=== PATIENT | female | born 1990 | race Caucasian/White ===

== ENCOUNTER 2017-01-07 14:50 | Inpatient (IN) | payer MEDICAID ==
[2017-01-07] VITALS (25 sets, daily range): BP systolic 114–141; BP diastolic 60–83; PULSE 73–102; TEMP 98.2–98.9
[~2017-01-07] VITALS: Ht 162.6 cm; Wt 104.5 kg
[~2017-01-07 14:50] MED LIST: DULCOLAX TAB5 MG PO; MOTRIN 800800 MG/TAB PO; PERCOCET 325 MG1 TA2 PO; PRENATAL VITAMI1 T12 PO; TYLENOL 325MG325 MG PO
[2017-01-07] MEDS ORDERED: NATURAL IRON65 MG PO (15:17)
[2017-01-07] MEDS ORDERED: TYLENOL 325MG325 MG PO (15:17)
[2017-01-07 15:41] LABS: BASO % 0.2 % (0.0-2.0); EOS % 0.1 % (0-4.0); GRAN # 10.6 (1.4-6.5); GRAN % 79.3 % (42.2-75.2); HEMATOCRIT 37.5 % (37.0-47.0); LYMPH # 1.9 (1.2-3.4); LYMPH % 14.4 % (20.0-51.0); MEAN CELL VOLUME 77 fl (80.0-100.0); MEAN CORPUSCULAR HEMOGLOBIN 25 pg (27.0-31.0); MEAN CORPUSCULAR HGB CONC 32 g/dl (33.0-37.0); MONO # 0.7 (0.1-0.6); MONO % 5.3 % (1.7-9.3); PLATELET COUNT 166 K/mm3 (130-400); RED BLOOD COUNT 4.89 M/mm3 (4.10-5.30); REDCELL DISTRIBUTION WIDTH-CV 19.4 % (11.5-14.5); WHITE BLOOD COUNT 13.3 K/mm3 (4.8-10.8)
[2017-01-08 03:20] VITALS: BP 120/65; PULSE 87; TEMP 97.8
[2017-01-08 07:00] VITALS: BP 120/94; PULSE 85; TEMP 98.2
[2017-01-08 08:21] LABS: BASO % 0.2 % (0.0-2.0); EOS % 0.3 % (0-4.0); GRAN # 8.1 (1.4-6.5); GRAN % 75.3 % (42.2-75.2); LYMPH % 18.2 % (20.0-51.0); MEAN CELL VOLUME 81 fl (80.0-100.0); MEAN CORPUSCULAR HGB CONC 30 g/dl (33.0-37.0); MEAN PLATELET VOLUME 11.4 fl (7.4-10.4); MONO # 0.6 (0.1-0.6); MONO % 5.4 % (1.7-9.3); PLATELET COUNT 110 K/mm3 (130-400); RED BLOOD COUNT 3.27 M/mm3 (4.10-5.30); REDCELL DISTRIBUTION WIDTH-CV 19.6 % (11.5-14.5); WHITE BLOOD COUNT 10.7 K/mm3 (4.8-10.8)
[2017-01-08 08:24] LABS: HEMATOCRIT 26.4 % (37.0-47.0); MEAN CORPUSCULAR HEMOGLOBIN 24 pg (27.0-31.0)
[2017-01-08 16:30] VITALS: BP 124/70; PULSE 93; TEMP 98
[2017-01-08 22:30] VITALS: BP 110/63; PULSE 75; TEMP 97.8
[2017-01-09] VITALS (12 sets, daily range): BP systolic 97–134; BP diastolic 59–71; PULSE 82–101; TEMP 97.5–98.6
[2017-01-09] MEDS ORDERED: MOTRIN 800800 MG/TAB PO (11:05)
[2017-01-09 14:04] LABS: BASO % 0.2 % (0.0-2.0); EOS # 0.1 (0.0-0.7); EOS % 0.9 % (0-4.0); GRAN # 6.6 (1.4-6.5); GRAN % 74.2 % (42.2-75.2); LYMPH # 1.7 (1.2-3.4); LYMPH % 19.2 % (20.0-51.0); MEAN CELL VOLUME 81 fl (80.0-100.0); MEAN CORPUSCULAR HGB CONC 31 g/dl (33.0-37.0); MEAN PLATELET VOLUME 12.1 fl (7.4-10.4); MONO # 0.4 (0.1-0.6); MONO % 4.9 % (1.7-9.3); PLATELET COUNT 99 K/mm3 (130-400); RED BLOOD COUNT 2.79 M/mm3 (4.10-5.30); REDCELL DISTRIBUTION WIDTH-CV 19.5 % (11.5-14.5); WHITE BLOOD COUNT 8.9 K/mm3 (4.8-10.8)
[2017-01-09 14:14] LABS: HEMATOCRIT 22.7 % (37.0-47.0); MEAN CORPUSCULAR HEMOGLOBIN 25 pg (27.0-31.0)
[2017-01-10 07:01] LABS: BASO % 0.1 % (0.0-2.0); EOS # 0.2 (0.0-0.7); EOS % 1.7 % (0-4.0); GRAN # 6.7 (1.4-6.5); GRAN % 69.8 % (42.2-75.2); LYMPH # 2.1 (1.2-3.4); LYMPH % 21.4 % (20.0-51.0); MEAN CELL VOLUME 83 fl (80.0-100.0); MEAN CORPUSCULAR HGB CONC 31 g/dl (33.0-37.0); MEAN PLATELET VOLUME 12.1 fl (7.4-10.4); MONO # 0.6 (0.1-0.6); MONO % 5.9 % (1.7-9.3); PLATELET COUNT 106 K/mm3 (130-400); RED BLOOD COUNT 3.32 M/mm3 (4.10-5.30); REDCELL DISTRIBUTION WIDTH-CV 18.8 % (11.5-14.5); WHITE BLOOD COUNT 9.7 K/mm3 (4.8-10.8)
[2017-01-10 07:24] LABS: HEMATOCRIT 27.5 % (37.0-47.0); HEMOGLOBIN 8.6 g/dl (12.5-16.0); MEAN CORPUSCULAR HEMOGLOBIN 26 pg (27.0-31.0)
[2017-01-10 08:00] VITALS: BP 111/66; PULSE 86
== END 2017-01-10 10:20 | disposition home or self-care (01) | DRG 774 ==
LOC: LDRO 14:50 → LDR 15:00 → OB 15:00
PROVIDERS: Obstetrics & Gynecology
PROC: 10E0XZZ Delivery of Products of Conception, External Approach (ICD-10-PCS; principal; 2017-01-07)
PROC: 0HQ9XZZ Repair Perineum Skin, External Approach (ICD-10-PCS; 2017-01-07)
DX: O48.0 Post-term pregnancy (principal); O72.1 Other immediate postpartum hemorrhage; O69.81X0 Labor and delivery complicated by cord around neck, without compression, not applicable or unspecified; O99.02 Anemia complicating childbirth; D64.9 Anemia, unspecified; O70.0 First degree perineal laceration during delivery; Z3A.40 40 weeks gestation of pregnancy; Z37.0 Single live birth
CPT/HCPCS: J2210; J2270; J2405; J2590; J7120; P9016

== ENCOUNTER 2019-11-29 10:45 | Inpatient (IN) | payer MEDICAID ==
[2019-11-29] VITALS (25 sets, daily range): BP systolic 104–146; BP diastolic 53–79; PULSE 74–966; TEMP 98.1–98.4
[~2019-11-29] VITALS: Ht 162.6 cm; Wt 115.5 kg
[~2019-11-29 10:45] MED LIST changes: +NATURAL IRON65 MG PO
--- NOTE | 2019-11-29 11:45 | NUR ---
Patient arrives ambulatory with spouse for scheduled induction of labor. Patient reports irregular contractions, denies ROM or vaginal bleeding and reports normal movement. Patient changes into gown, EFM explained and placed. VS obtained. Patient updated on plan of care, denies questions. 1200- IV started in LH, labs obtained. LR infusing per protocol. Assessment completed. Consents explained and signed. Denies questions. 1245- Dr. Bear at bedside. Reviews FHR strip. Orders to start Pitocin induction. Discussing AROM, patient agrees. 1246- AROM by Dr. Bear for moderate amount of clear fluid. SVE /-2. Orders that patient may have epidural when desired. 1250- Pitocin started at 2 mU per protocol and order. Patient updated on plan of care.
[2019-11-29 12:35] LABS: BASO % 0.1 % (0.0-2.0); EOS % 0.1 % (0-4.0); GRAN # 5.6 (1.4-6.5); GRAN % 73.9 % (42.2-75.2); HEMATOCRIT 35.5 % (37.0-47.0); HEMOGLOBIN 11.2 g/dl (12.5-16.0); LYMPH # 1.4 (1.2-3.4); LYMPH % 17.7 % (20.0-51.0); MEAN CELL VOLUME 79 fl (80.0-100.0); MEAN CORPUSCULAR HEMOGLOBIN 25 pg (27.0-31.0); MEAN CORPUSCULAR HGB CONC 32 g/dl (33.0-37.0); MEAN PLATELET VOLUME 11.6 fl (7.4-10.4); MONO # 0.6 (0.1-0.6); MONO % 7.5 % (1.7-9.3); PLATELET COUNT 127 K/mm3 (130-400); RED BLOOD COUNT 4.52 M/mm3 (4.10-5.30); REDCELL DISTRIBUTION WIDTH-CV 16.9 % (11.5-14.5)
--- NOTE | 2019-11-29 13:35 | NUR ---
Physician on unit, reviews FHR strip. Orders to continue Pitocin induction.
--- NOTE | 2019-11-29 14:10 | NUR ---
Patient requesting SVE, breathing through contractions. SVE /-1. Dr. Bear at bedside. Patient requesting epidural. Lucila Wong CRNA notified, LR infusing.
--- NOTE | 2019-11-29 15:14 | NUR ---
1514- Variable deceleration noted down to 70 bpm lasting approximately 90 seconds followed by early decelerations noted to 90 bpm. Moderate variability remains, SVE unchanged, patient repositioned RL with LR bolus infusing. Will update physician.
--- NOTE | 2019-11-29 15:50 | NUR ---
Recurrent variable decelerations noted. Patient reports increased pressure. SVE 8/90/0. Dr. Bear notified, reviewed FHR strip and interventions. Orders to notify physician when complete. 1600- Patient reports increased pressure. SVE AL/+1. Dr. Bear notified and requested at bedside. In transit. RN remains at bedside.
--- NOTE | 2019-11-29 16:05 | NUR ---
1605- Dr. Bear at bedside. SVE per provider . Patient prepped for delivery, bahena catheter removed prior to pushing and patient assisted to footplates. Nursery RN at bedside. 161- Patient begins pushing with contractions with physician at bedside. Moves vertex well. 161- of viable male infant attended by Dr. Bear. to mothers abdomen, care of infant to Rocky Carpenter RN. Apgars 8/8/9. 1615- Spont. delivery of placenta. Pitocin bolus started at 333 ml/hr/protocol. Fundal massage, firm and at umbilcus. Second degree perineal laceration repaired, patient tolerates well. Pericare given and ice pack applied. Vaginal bleeding WNL at this time. Will continue to monitor.
[2019-11-30 02:50] VITALS: BP 119/68; PULSE 87; TEMP 98.4
--- NOTE | 2019-11-30 07:04 | NUR ---
Report received from off going RN, Estefany. Care taken over by this RN.
[2019-11-30 08:04] VITALS: BP 129/64; PULSE 96; TEMP 97.2
--- NOTE | 2019-11-30 09:45 | NUR ---
Initial visit; Parents thanked Collections Curator for offering congratulations and God's blessings for the of their son. Collections Curator thanked family for choosing [facility].
[2019-11-30] MEDS ORDERED: IBU800 M1 PO (10:28)
[2019-11-30 17:00] VITALS: BP 115/90; PULSE 94; TEMP 98.6
[2019-11-30 21:30] VITALS: BP 119/56; PULSE 86
[2019-12-01 08:30] VITALS: BP 114/59; PULSE 91; TEMP 98.3
== END 2019-12-01 10:50 | disposition home or self-care (01) | DRG 807 ==
LOC: OB 10:45 → LDR 11:40 → OB 11:40
PROVIDERS: ADMIT Obstetrics & Gynecology
PROC: 10E0XZZ Delivery of Products of Conception, External Approach (ICD-10-PCS; principal; 2019-11-29)
PROC: 10907ZC Drainage of Amniotic Fluid, Therapeutic from Products of Conception, Via Natural or Artificial Opening (ICD-10-PCS; 2019-11-29)
DX: O99.12 Other diseases of the blood and blood-forming organs and certain disorders involving the immune mechanism complicating childbirth (principal); Z37.0 Single live birth; O70.1 Second degree perineal laceration during delivery; D69.6 Thrombocytopenia, unspecified; Z3A.39 39 weeks gestation of pregnancy; O99.02 Anemia complicating childbirth; D64.9 Anemia, unspecified
CPT/HCPCS: J2590; J7120